=== PATIENT | male | born 1950 | race Caucasian/White ===

== ENCOUNTER 2016-12-25 08:59 | Inpatient (IN) | payer BC, OTHER ==
[2016-12-25] MEDS ORDERED: Albuterol/Ipratropium 3.0-0.5 MG/3 ML Neb Soln NEB ONE ×2 (09:01→10:25)
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
[2016-12-25] MEDS ORDERED: HYDROmorphone 1 MG/ML Syringe IVPUSH ONE (09:15)
[2016-12-25] MEDS ORDERED: Ondansetron 4 MG/2 ML SDV IVPUSH ONE (09:15)
[2016-12-25] MEDS ORDERED: Sodium Chloride 0.9% 1,000 ML ONE ×2 (09:48→15:32)
[2016-12-25] MEDS: Sodium Chloride 0.9% 10 ML Syringe FLUSH PRN (09:52)
[2016-12-25] MEDS ORDERED: Albuterol/Ipratropium 3.0-0.5 MG/3 ML Neb Soln ONE (10:31)
[2016-12-25] MEDS ORDERED: Furosemide 40 MG/4 ML VIAL IVPUSH ONE (10:57)
[2016-12-25] MEDS ORDERED: Dextrose 5%-0.9% NaCl 1,000 ML IV SCH (12:00)
[2016-12-25] MEDS ORDERED: Lidocaine 2% Jelly 10 ML Urojet ONE (13:17)
[2016-12-25] MEDS ORDERED: Lidocaine 2% Jelly 10 ML Urojet MUCMEM ONE (13:23)
[2016-12-25] MEDS ORDERED: Ibuprofen 600 MG Tab PO ONE (13:35)
[2016-12-25] MEDS ORDERED: Levofloxacin/Dextrose 5%-Water 750 MG in Premix Bag 1 BAG IV ONE (14:03)
[2016-12-25] MEDS ORDERED: Acetaminophen 325 MG Tab PO ONE (15:17)
[2016-12-25] MEDS ORDERED: Sodium Chloride 0.9% 1,000 ML IV SCH (15:30)
--- NOTE | 2016-12-25 15:44 | CR ---
Chest: Portable view of the chest was obtained. Comparison: Previous chest x-ray performed earlier on the same day. Heart size and mediastinum are stable. Bony structures are unchanged. Slight atelectasis within the right lung base is seen. Lungs otherwise are clear. Impression: 1. Mild right basilar atelectasis. Nothing acute is appreciated. Diagnostic code #2
--- NOTE | 2016-12-25 15:45 | CR ---
Chest: Frontal view of the chest was obtained. Comparison: No previous study. Heart size is normal. Tortuous thoracic aorta is seen. Linear density is seen within the right lung base most likely representing atelectasis. Lungs otherwise are clear. Several old healed left-sided rib fractures are noted. Impression: 1. Incidental findings as noted above. Nothing acute is appreciated. Diagnostic code #2
[2016-12-25] MEDS: Sodium Chloride 0.9% 1,000 ML IV SCH ×3 (16:58→21:11)
[2016-12-25] MEDS ORDERED: Albuterol/Ipratropium 3.0-0.5 MG/3 ML Neb Soln NEB PRN (17:55)
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
[2016-12-25] MEDS: Tamsulosin 0.4 MG Cap.ER PO SCH (18:27)
[2016-12-25] MEDS ORDERED: Acetaminophen 325 MG Tab PO PRN (22:52)
[2016-12-26] MEDS ORDERED: Albuterol 0.5% 2.5 MG/0.5 ML Neb Soln NEB PRN (00:36)
[2016-12-26] MEDS: methylPREDNISolone Sodium Succinate 125 MG/2 ML SDV IVPUSH SCH ×4 (00:57→20:32)
[2016-12-26] MEDS ORDERED: Piperacillin/Tazobactam 4.5 GM in Sodium Chloride 0.9% 100 ML IV SCH (01:00)
[2016-12-26] MEDS: Sodium Chloride 0.9% 1,000 ML IV SCH ×4 (01:29→15:27)
[2016-12-26] MEDS: Levalbuterol HCl 1.25 MG/3 ML Neb NEB SCH ×4 (02:10→20:41)
[2016-12-26] MEDS ORDERED: Furosemide 20 MG/2 ML VIAL IVPUSH ONE (05:00)
--- NOTE | 2016-12-26 07:31 | CR ---
Chest: Portable view of the chest was obtained. Comparison: Previous chest x-ray of 12/25/16. Heart size and mediastinum are within normal limits. Slight atelectasis remains within both lung bases. No acute infiltrates are seen. Old healed left mid rib fracture. Impression: 1. Mild atelectasis within both lung bases. Other incidental findings. 2. Nothing acute is otherwise seen. Diagnostic code #2 I agree with preliminary report issued by [facility] ([facility] preliminary report dictated on 12/26/16, 2:29 AM Central Time)
[2016-12-26] MEDS ORDERED: Furosemide 40 MG/4 ML VIAL IVPUSH ONE (08:00)
[2016-12-26] MEDS: Sodium Chloride 0.9% 10 ML Syringe FLUSH PRN (09:09)
[2016-12-26] MEDS: Piperacillin/Tazobactam 4.5 GM in Sodium Chloride 0.9% 100 ML IV SCH ×2 (09:11→18:03)
[2016-12-26] MEDS: Multivitamins with Minerals/Folic Acid/Lutein/Zeaxanth Tab PO SCH (09:14)
[2016-12-26] MEDS: Tamsulosin 0.4 MG Cap.ER PO SCH ×2 (09:14→19:32)
[2016-12-26] MEDS ORDERED: FLU Vacc TS 2017-18 (65yr UP)/PF 180 MCG/0.5 ML Syringe IM ONE (10:00)
[2016-12-26] MEDS ORDERED: Magnesium Sulfate/Water 2 GM in Premix Bag 1 BAG IV ONE (10:30)
[2016-12-26] MEDS: Enoxaparin 40 MG/0.4 ML Syringe SUBCUT SCH (11:30)
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
[2016-12-26] MEDS ORDERED: Levofloxacin/Dextrose 5%-Water 750 MG in Premix Bag 1 BAG IV SCH (13:00)
[2016-12-26] MEDS ORDERED: hydrALAZINE 20 MG/ML SDV IVPUSH PRN ×2 (14:22→16:23)
[2016-12-26] MEDS ORDERED: Ondansetron 4 MG/2 ML SDV IVPUSH STA (16:05)
[2016-12-26] MEDS ORDERED: Morphine 2 MG/ML Syringe IVPUSH ONE (16:06)
[2016-12-26] MEDS ORDERED: Morphine 2 MG/ML Syringe IVPUSH PRN (16:17)
[2016-12-26] MEDS ORDERED: LORazepam 2 MG/ML MDV IVPUSH PRN ×2 (16:21→17:09)
[2016-12-26] MEDS ORDERED: Ondansetron 4 MG/2 ML SDV IVPUSH PRN (16:23)
[2016-12-26] MEDS: Metoprolol Tartrate 25 MG Tab PO SCH ×2 (16:40→20:31)
[2016-12-26] MEDS ORDERED: Sodium Chloride 0.45% 1,000 ML IV SCH (17:45)
[2016-12-26] MEDS: Metoprolol Tartrate 5 MG/5 ML SDV IVPUSH PRN (17:58)
[2016-12-26] MEDS ORDERED: Sodium Chloride 0.9% 10 ML Syringe FLUSH PRN (18:05)
[2016-12-26] MEDS ORDERED: Iopamidol 612 MG/ML 100 ML Bottle IVPUSH ONE (18:05)
--- NOTE | 2016-12-26 19:12 | CT ---
CT chest (without and with contrast) Technique: Multiple axial sections were obtained through the chest without and with intravenous contrast. Comparison: Previous chest x-ray performed earlier on the same day. Findings: Mediastinum and hilar regions show no adenopathy or mass. Slight atherosclerotic calcification is noted within the aorta without aneurysmal dilatation. No pericardial thickening is seen. Small hiatal hernia is seen. Low-density lesions are seen within the liver with larger lesions having Hounsfield unit measurements of cysts and smaller lesions most likely of similar etiology. Cyst noted within both kidneys as well as nonobstructing calculi being seen within both kidneys. Lung window setting shows increased density within both lung bases having the appearance of atelectasis. Lungs otherwise are clear. No pleural effusions are seen. Bone window settings shows minimal degenerative spurring within the spine. Impression: 1. Mild atelectasis within both lung bases. 2. Findings within the abdomen which are felt to be incidental. 3. No additional abnormality is identified on CT study of the chest. Diagnostic code #2
[2016-12-27] MEDS: Codeine/Promethazine 10-6.25 MG/5 ML Syrup 5 ML UD Cup PO PRN ×2 (00:14→06:18)
[2016-12-27] MEDS: Piperacillin/Tazobactam 4.5 GM in Sodium Chloride 0.9% 100 ML IV SCH ×2 (00:14→08:46)
[2016-12-27] MEDS: Levalbuterol HCl 1.25 MG/3 ML Neb NEB SCH ×2 (03:18→09:11)
[2016-12-27] MEDS: methylPREDNISolone Sodium Succinate 125 MG/2 ML SDV IVPUSH SCH ×2 (03:21→08:46)
[2016-12-27] MEDS: Metoprolol Tartrate 5 MG/5 ML SDV IVPUSH PRN (06:18)
[2016-12-27] MEDS: Metoprolol Tartrate 25 MG Tab PO SCH (08:47)
[2016-12-27] MEDS: Enoxaparin 40 MG/0.4 ML Syringe SUBCUT SCH (08:47)
[2016-12-27] MEDS: Multivitamins with Minerals/Folic Acid/Lutein/Zeaxanth Tab PO SCH (08:47)
[2016-12-27] MEDS: Tamsulosin 0.4 MG Cap.ER PO SCH (08:47)
--- NOTE | 2016-12-27 10:24 | CR ---
Chest: Two views of the chest were obtained. Comparison: Prior chest CT of 12/26/16 and chest x-ray of 12/26/16. Changing areas of atelectasis are seen within both lung bases. Lung markings are minimally increased which appear stable. Heart size is normal. Slight tortuosity of the aorta is stable. Bony structures are unchanged. Impression: 1. Slight changing appearance of atelectasis within both lung bases. 2. No other interval change is appreciated. Diagnostic code #2
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
[2016-12-27] MEDS ORDERED: Sodium Chloride 0.45% 1,000 ML IV SCH (23:00)
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
== END 2016-12-27 12:56 | disposition home or self-care (01) | DRG 918 ==
LOC: JD.ED 08:59 → JD.ICU 15:14 → UNDOADMIN 15:14 → JD.ICU 15:33
PROVIDERS: ADMIT Hospitalist; ATTEND Hospitalist
DX: T59.891A Toxic effect of other specified gases, fumes and vapors, accidental (unintentional), initial encounter (principal); R50.9 Fever, unspecified; R09.02 Hypoxemia; T20.19XA Burn of first degree of multiple sites of head, face, and neck, initial encounter; X08.8XXA Exposure to other specified smoke, fire and flames, initial encounter; R00.0 Tachycardia, unspecified; N40.1 Benign prostatic hyperplasia with lower urinary tract symptoms; R33.8 Other retention of urine; I10 Essential (primary) hypertension; Z79.899 Other long term (current) drug therapy
CPT/HCPCS: 36415; 51702; 51798; 71010; 71010-26; 71020; 71020-26; 71270; 71270-26; 80048; 80053; 80061; 81001; 82553; 82803; 83605; 83735; 83880; 84443; 84484; 85025; 86140; 86738; 87040; 87070; 87086; 87205; 87486; 87581; 87633; 87798; 87899; 92610-GN; 93005; 93010; 94640; 96361; 96365; 96375; 97116-GP; 97162-GP; 97165-GO; 97530-GO; 99285; 99285-25; A9270-GY; J0360; J1170; J1650; J1940; J1956; J2270; J2405; J2543; J2930; J3475; J3490; J7030; J7040; J7042; J7050; Q9967

== ENCOUNTER 2016-12-25 15:33 | Inpatient (IN) | payer OTHER ==
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
[2016-12-27] MEDS ORDERED: Sodium Chloride 0.9% 10 ML Syringe FLUSH PRN (20:50)
[2016-12-27] MEDS ORDERED: Temazepam 7.5 MG Cap PO PRN (20:56)
[2016-12-27] MEDS ORDERED: Albuterol 0.083% 2.5 MG/3 ML Neb Soln NEB PRN (21:03)
[2016-12-27] MEDS ORDERED: Ondansetron 4 MG Tab.DIS PO PRN (21:04)
[2016-12-27] MEDS ORDERED: Acetaminophen 325 MG Tab PO PRN (21:05)
[2016-12-27] MEDS: Ascorbic Acid 500 MG Tab PO SCH (22:46)
[2016-12-27] MEDS: Metoprolol Tartrate 25 MG Tab PO SCH (22:47)
[2016-12-27] MEDS: Tamsulosin 0.4 MG Cap.ER PO SCH (22:47)
[2016-12-27] MEDS: Terazosin 1 MG Cap PO SCH (22:54)
[2016-12-27] MEDS: methylPREDNISolone Sodium Succinate 40 MG/1 ML SDV IVPUSH SCH (23:09)
[2016-12-28] MEDS: Ofloxacin 0.3% Ophth Soln 5 ML Bottle EYEBOTH SCH ×4 (00:20→20:52)
[2016-12-28] MEDS: Codeine/Promethazine 10-6.25 MG/5 ML Syrup 5 ML UD Cup PO PRN ×2 (01:19→20:48)
[2016-12-28] MEDS: methylPREDNISolone Sodium Succinate 40 MG/1 ML SDV IVPUSH SCH ×4 (04:09→20:55)
[2016-12-28] MEDS: Levalbuterol HCl 1.25 MG/3 ML Neb NEB SCH ×4 (06:27→21:23)
[2016-12-28] MEDS: Enoxaparin 40 MG/0.4 ML Syringe SUBCUT SCH (08:09)
[2016-12-28] MEDS: Metoprolol Tartrate 25 MG Tab PO SCH ×2 (08:10→20:50)
[2016-12-28] MEDS: Tamsulosin 0.4 MG Cap.ER PO SCH ×2 (08:10→18:06)
[2016-12-28] MEDS: Ascorbic Acid 500 MG Tab PO SCH ×2 (08:10→20:50)
[2016-12-28] MEDS: Terazosin 1 MG Cap PO SCH ×2 (08:10→20:50)
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
[2016-12-28] MEDS ORDERED: Tamsulosin 0.4 MG Cap.ER PO SCH (18:00)
[2016-12-29] MEDS: methylPREDNISolone Sodium Succinate 40 MG/1 ML SDV IVPUSH SCH ×3 (03:47→20:20)
[2016-12-29] MEDS: Levalbuterol HCl 1.25 MG/3 ML Neb NEB SCH ×4 (06:32→20:38)
[2016-12-29] MEDS: Metoprolol Tartrate 25 MG Tab PO SCH ×2 (08:43→20:20)
[2016-12-29] MEDS: Multivitamins,Therapeutic Tab PO SCH (08:43)
[2016-12-29] MEDS: Terazosin 1 MG Cap PO SCH ×2 (08:43→20:23)
[2016-12-29] MEDS: Lisinopril 20 MG Tab PO SCH (08:43)
[2016-12-29] MEDS: Tamsulosin 0.4 MG Cap.ER PO SCH ×2 (08:44→17:02)
[2016-12-29] MEDS: Enoxaparin 40 MG/0.4 ML Syringe SUBCUT SCH (08:44)
[2016-12-29] MEDS: Ascorbic Acid 500 MG Tab PO SCH ×2 (08:44→20:20)
[2016-12-29] MEDS: Ofloxacin 0.3% Ophth Soln 5 ML Bottle EYEBOTH SCH ×2 (08:45→20:23)
[2016-12-29] MEDS: Diphenhydramine/Lidocaine/MagAl/Simethicone 119 ML Bottle PO PRN ×2 (10:59→16:26)
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
[2016-12-29] MEDS ORDERED: methylPREDNISolone Sodium Succinate 40 MG/1 ML SDV IVPUSH SCH (12:00)
[2016-12-29] MEDS: Codeine/Promethazine 10-6.25 MG/5 ML Syrup 5 ML UD Cup PO PRN (12:19)
[2016-12-29] MEDS ORDERED: Mineral Oil/White Petrolatum Crm 113 GM Jar TOP PRN (12:30)
[2016-12-29] MEDS ORDERED: Terazosin 1 MG Cap PO ONE (16:31)
[2016-12-30] MEDS: Levalbuterol HCl 1.25 MG/3 ML Neb NEB SCH (06:22)
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
[2016-12-30] MEDS: Multivitamins,Therapeutic Tab PO SCH (08:16)
[2016-12-30] MEDS: Tamsulosin 0.4 MG Cap.ER PO SCH (08:17)
[2016-12-30] MEDS: Lisinopril 20 MG Tab PO SCH (08:17)
[2016-12-30] MEDS: Metoprolol Tartrate 25 MG Tab PO SCH (08:17)
[2016-12-30] MEDS: Ascorbic Acid 500 MG Tab PO SCH (08:17)
[2016-12-30] MEDS: methylPREDNISolone Sodium Succinate 40 MG/1 ML SDV IVPUSH SCH (08:18)
[2016-12-30] MEDS: Enoxaparin 40 MG/0.4 ML Syringe SUBCUT SCH (08:18)
[2016-12-30] MEDS: Ofloxacin 0.3% Ophth Soln 5 ML Bottle EYEBOTH SCH (08:18)
[2016-12-30] MEDS: Terazosin 1 MG Cap PO SCH (08:19)
== END 2016-12-30 09:14 | disposition home or self-care (01) | DRG 918 ==
LOC: JD.MS 15:33 → UNDOADMIN 12-27 19:40 → JD.MS 12-27 20:08 → UNDOADMIN 12-27 20:08 → UNDODISIN 12-30 09:14
PROVIDERS: ADMIT Internal Medicine Cardiovascular Disease; ATTEND Internal Medicine Cardiovascular Disease
DX: T59.891A Toxic effect of other specified gases, fumes and vapors, accidental (unintentional), initial encounter (principal); H44.002 Unspecified purulent endophthalmitis, left eye; T20.59XA Corrosion of first degree of multiple sites of head, face, and neck, initial encounter; R50.9 Fever, unspecified; N40.1 Benign prostatic hyperplasia with lower urinary tract symptoms; R33.8 Other retention of urine; R09.02 Hypoxemia; I10 Essential (primary) hypertension; H53.9 Unspecified visual disturbance; R00.0 Tachycardia, unspecified; Z79.899 Other long term (current) drug therapy; T20.19XA Burn of first degree of multiple sites of head, face, and neck, initial encounter; X08.8XXA Exposure to other specified smoke, fire and flames, initial encounter
CPT/HCPCS: 36415; 51702; 51798; 71010; 71020; 71270; 80048; 80053; 80061; 81001; 82553; 82803; 83605; 83735; 83880; 84443; 84484; 85025; 86140; 86738; 87040; 87070; 87086; 87205; 87486; 87581; 87633; 87798; 87899; 92526-GN; 92610-GN; 93005; 94640; 94760; 94761; 94762; 96361; 96365; 96375; 97116-GP; 97162-GP; 97165-GO; 97530-GO; 99285-25; A9270-GY; J0360; J1170; J1650; J1940; J1956; J2270; J2405; J2543; J2920; J2930; J3475; J3490; J7030; J7040; J7042; J7050; Q9967

== ENCOUNTER → 2019-03-02 | Day surgery (SDC) | payer BC, OTHER ==
[2019-03-02] MEDS: Polymyxin B/Trimethoprim 10 ML Bottle EYELF SCH ×4 (07:13→08:37)
[2019-03-02] MEDS: Brimonidine 0.2% Ophth Soln 5 ML Bottle EYELF SCH ×4 (07:18→08:37)
[2019-03-02] MEDS: Phenylephrine 2.5% Ophth Soln 2 ML Bot EYELF SCH ×6 (07:23→08:26)
--- NOTE | 2019-03-02 07:23 | PCM.PREANE ---
Preanesthetic Assessment - Anesthesia/Transfusion/Family Hx Anesthesia History: Prior Anesthesia Without Reaction Family History of Anesthesia Reaction: No Transfusion History: No Prior Transfusion(s) - Review of Systems General: No Symptoms Pulmonary: No Symptoms Cardiovascular: Other (HTN) Gastrointestinal: No Symptoms Neurological: No Symptoms - Physical Assessment NPO Status Date: 03/01/19 NPO Status Time: 22:00 Height: 1.88 m Weight: 113.398 kg ASA Class: 2 Mental Status: Alert & Oriented x3 Airway Class: Mallampati = 2 Dentition: Reports: Normal Dentition Thyro-Mental Finger Breadths: 3 Mouth Opening Finger Breadths: 3 ROM/Head Extension: Full Lungs: Clear to Auscultation, Normal Respiratory Effort Cardiovascular: Regular Rate, Regular Rhythm - Allergies Allergies/Adverse Reactions: Allergies Allergy/AdvReac Type Severity Reaction Status Date / Time No Known Allergies Allergy Verified 03/01/19 16:19 - Blood Blood Available: No Product(s) Available: None - Anesthesia Plan Pre-Op Medication Ordered: None - Acknowledgements Anesthesia Type Planned: MAC Pt an Appropriate Candidate for the Planned Anesthesia: Yes Alternatives and Risks of Anesthesia Discussed w Pt/Guardian: Yes Pt/Guardian Understands and Agrees with Anesthesia Plan: Yes PreAnesthesia Questionnaire Cardiovascular History: Reports: Hypertension Genitourinary History: Reports: BPH - Past Surgical History GI Surgical History: Reports: Appendectomy Musculoskeletal Surgical History: Reports: Knee Replacement - HOME MEDS Home Medications: Home Meds Lisinopril 20 mg PO DAILY 12/25/16 [History] Tamsulosin [Flomax] 0.4 mg PO BIDPC #60 cap.er 12/27/16 [Rx] Carboxymethylcellulose Sodium [Artificial Tears] 1 drop EYEBOTH BID PRN [History] Hydrochlorothiazide [Microzide] 12.5 mg PO DAILY 03/01/19 [History] - CURRENT (IN HOUSE) MEDS Current Meds: Current Medications Brimonidine Tartrate (Alphagan 0.2% Oph Soln) 0 ml EYELF ASDIRECTED RICKY Stop: 03/02/19 18:00 Cefuroxime Sodium (Zinacef) 0 mg EYELF ASDIRECTED RICKY Stop: 03/02/19 18:00 Lidocaine HCl (Xylocaine-Mpf 1%) 0 ml INJECT ASDIRECTED RICKY Stop: 03/02/19 18:00 Phenylephrine HCl (Neftali-Synephrine 2.5% Ophth Soln) 0 ml EYELF ASDIRECTED RICKY Stop: 03/02/19 18:00 Pilocarpine HCl (Pilocar 4% Ophth Soln) 0 ml EYELF ASDIRECTED RICKY Stop: 03/02/19 18:00 Polymyxin/Trimethoprim Sulfate (Polytrim Ophth Soln) 0 ml EYELF ASDIRECTED RICKY Stop: 03/02/19 18:00 Tetracaine HCl (Tetracaine 0.5% Steri-Unit Lindsay) 0 ml EYELF ASDIRECTED RICKY Stop: 03/02/19 18:00 Tropicamide (Mydriacyl 1% Ophth Soln) 0 ml EYELF ASDIRECTED RICKY Stop: 03/02/19 18:00
[2019-03-02] MEDS: Tropicamide 1% Ophth Soln 15 ML Bottle EYELF SCH ×4 (07:28→08:04)
[2019-03-02] MEDS: Tetracaine HCl/PF 0.5% 4 ML Bottle EYELF SCH ×3 (08:11→08:26)
[2019-03-02] MEDS: Lidocaine 1% PF 2 ML SDV INJECT SCH ×2 (08:23→08:26)
[2019-03-02] MEDS: Cefuroxime 10 MG/ML SYRINGE EYELF SCH ×2 (08:27→08:36)
[2019-03-02] MEDS: Pilocarpine 4% Ophth Soln 15 ML Bot EYELF SCH ×2 (08:28→08:37)
--- NOTE | 2019-03-02 08:38 | PCM48HPAN ---
Post Anesthesia Note - EVALUATION WITHIN 48HRS OF ANESTHETIC Vital Signs in Normal Range: Yes Patient Participated in Evaluation: Yes Respiratory Function Stable: Yes Airway Patent: Yes Cardiovascular Function Stable: Yes Hydration Status Stable: Yes Pain Control Satisfactory: Yes Nausea and Vomiting Control Satisfactory: Yes Mental Status Recovered: Yes Vital Signs: Last Vital Signs Temp 36.8 C 03/02/19 07:05 Pulse 83 03/02/19 07:05 Resp 16 03/02/19 07:05 BP 147/66 H 03/02/19 07:05 Pulse Ox 96 03/02/19 07:05
== END ==
LOC: JD.SDS 06:58
PROVIDERS: ATTEND Ophthalmology
DX: H25.813 Combined forms of age-related cataract, bilateral (principal); H40.1111 Primary open-angle glaucoma, right eye, mild stage; H40.052 Ocular hypertension, left eye; H16.103 Unspecified superficial keratitis, bilateral; H16.223 Keratoconjunctivitis sicca, not specified as Sjogren's, bilateral; H21.81 Floppy iris syndrome; I10 Essential (primary) hypertension; Z87.891 Personal history of nicotine dependence
CPT/HCPCS: 66984; C1780; J0697; J2001

== ENCOUNTER 2020-05-06 15:16 | Emergency (ER) | payer MEDICARE, BC ==
--- NOTE | 2020-05-06 16:12 | EDM.PDOC ---
ED HPI GENERAL MEDICAL PROBLEM - General Chief Complaint: ENT Problem Stated Complaint: NAIL STUCK IN NOSE Time Seen by Provider: 05/06/20 15:39 Source of Information: Reports: Patient, RN Notes Reviewed History Limitations: Reports: No Limitations - History of Present Illness INITIAL COMMENTS - FREE TEXT/NARRATIVE: Is a 70-year-old male who presents to the ER for a foreign body in his nose. Patient notes he was working with some metal at home, on unguarded table saw, when a nail was dislodged, and struck his face. He states the stroke on the left side of his nose, and feels a foreign body stuck on the outer surface of his nose, he was not able to get this out at home so he comes to the ER for removal. He denies any eye injury, or any bloody nose, or any other facial injuries. He has had not had any fevers or chills, cough or shortness of breath, nausea/vomiting/diarrhea. Patient is not on any blood thinners. Patient states that he is up-to-date on his tetanus vaccine. - Related Data Allergies Allergy/AdvReac Type Severity Reaction Status Date / Time No Known Allergies Allergy Verified 03/01/19 16:19 Home Meds: Home Meds Lisinopril 20 mg PO DAILY 12/25/16 [History] hydroCHLOROthiazide [Microzide] 12.5 mg PO DAILY 03/01/19 [History] Past Medical History Cardiovascular History: Reports: Hypertension Genitourinary History: Reports: BPH - Past Surgical History HEENT Surgical History: Reports: None Cardiovascular Surgical History: Reports: None GI Surgical History: Reports: Appendectomy Male Surgical History: Reports: None Musculoskeletal Surgical History: Reports: Knee Replacement Dermatological Surgical History: Reports: None Social & Family History - Family History Family Medical History: No Pertinent Family History - Tobacco Use Tobacco Use Status *Q: Never Tobacco User Second Hand Smoke Exposure: No - Caffeine Use Caffeine Use: Reports: Coffee - Recreational Drug Use Recreational Drug Use: No - Living Situation & Occupation Living situation: Reports: Occupation: Employed ED ROS ENT - Review of Systems Review Of Systems: Comprehensive ROS is negative, except as noted in HPI. ED EXAM, ENT - Physical Exam Exam: See Below Exam Limited By: No Limitations General Appearance: Alert, WD/WN, No Apparent Distress Nose: Normal Mucousa, Other (metallic foreign body noted to the outer left nasal bridge. bleeding is under control) Mouth/Throat: Normal Inspection Head: Normocephalic, Other (nasal laceration with retained foreign body) Neck: Normal Inspection, Supple, Non-Tender, Full Range of Motion Respiratory/Chest: No Respiratory Distress, Lungs Clear, Normal Breath Sounds, No Accessory Muscle Use, Chest Non-Tender Cardiovascular: Normal Peripheral Pulses, Regular Rate, Rhythm, No Edema Extremities: Normal Inspection, Normal Capillary Refill Neurological: Alert, Oriented, Normal Cognition, No Motor/Sensory Deficits Psychiatric: Normal Affect, Normal Mood Skin: Warm, Dry, Normal Color, No Rash, Wound/Incision (To the left nasal bridge, there is a metallic foreign body noted at the end of the wound tract.) ED ENT PROCEDURES - Foreign Body Removal Indication:: foreign body (metal nail) stuck in skin of nose Consent Obtained: Patient Performing Doctor:: Angela Santiago V Foreign Body Other Location Comment:: left nasal bridge, superficial skin Anesthesia Type: None Complications: No Comments: Patient presents for his suspected retained metallic foreign body in the superficial skin of his left nasal bridge. The area was lanced with an 18-gauge needle, and I did extract about 1/2 cm piece of metal with tweezers with little to no difficulty, patient tolerated procedure well, there was little to no bleeding with this small procedure. Course - Vital Signs Last Recorded V/S: Last Vital Signs Temp 98.7 F 05/06/20 15:35 Pulse 100 05/06/20 15:35 Resp 16 05/06/20 15:35 BP 173/112 H 05/06/20 15:35 Pulse Ox 96 05/06/20 15:35 Departure - Departure Time of Disposition: 16:12 Disposition: Home, Self-Care 01 Condition: Good Clinical Impression: Foreign body (FB) in soft tissue - Discharge Information *PRESCRIPTION DRUG MONITORING PROGRAM REVIEWED*: No *COPY OF PRESCRIPTION DRUG MONITORING REPORT IN PATIENT TERRY: No Referrals: PCP,None [Primary Care Provider] - Additional Instructions: You were seen in the ER today for your piece of nail that was stuck within the skin of your left nose. This was extracted with little difficulty, there was a small amount of bleeding, but this should get even less as the day goes on. If you should get some bleeding while you are at home, please apply pressure or an ice pack to try to stop the bleeding. Please watch out for signs of infection, redness/swelling/drainage at the wound site. You may cleanse the area with warm soapy water, and pat it dry. Please return to the ER at any time if your symptoms change or worsen. Sepsis Event Note (ED) - Evaluation Sepsis Screening Result: No Definite Risk - Focused Exam Vital Signs: Vital Signs Temp Pulse Resp BP Pulse Ox 05/06/20 15:35 98.7 F 100 16 173/112 H 96
== END 2020-05-06 16:25 | disposition home or self-care (01) ==
LOC: JD.ED 15:16
DX: T17.1XXA Foreign body in nostril, initial encounter (principal); I10 Essential (primary) hypertension; Z79.899 Other long term (current) drug therapy
CPT/HCPCS: 10120; 30300; 99282; 99282-25

== ENCOUNTER → 2021-12-06 | Day surgery (SDC) | payer MEDICARE, BC ==
[2021-12-06] MEDS: Brimonidine 0.2% Ophth Soln 5 ML Bottle EYERT SCH ×2 (15:25→16:32)
[2021-12-06] MEDS: Phenylephrine 2.5% Ophth Soln 2 ML Bot EYERT SCH ×3 (15:30→15:50)
[2021-12-06] MEDS: Tropicamide 1% Ophth Soln 15 ML Bottle EYERT SCH ×3 (15:35→15:55)
== END ==
LOC: JD.SDS 14:23
PROVIDERS: ATTEND Ophthalmology
DX: E11.36 Type 2 diabetes mellitus with diabetic cataract (principal); H26.492 Other secondary cataract, left eye; I10 Essential (primary) hypertension; Z98.890 Other specified postprocedural states

== ENCOUNTER 2023-03-06 16:35 | Emergency (ER) | payer MEDICARE, BC ==
[2023-03-06] MEDS ORDERED: Bupivacaine 0.5% 50 ML MDV INFILT ONE (17:21)
[2023-03-06] MEDS ORDERED: Bupivacaine 0.5% 10 ML SDV INJECT ONE (17:24)
[2023-03-06] MEDS ORDERED: Amoxicillin/Clavulanate K 875-125 MG Tab PO ONE (17:41)
[2023-03-06] MEDS ORDERED: Diphtheria,Pertussis(Acell),Tetanus Vaccine 0.5 ML Syringe IM ONE (18:52)
== END 2023-03-06 19:13 | disposition home or self-care (01) ==
LOC: JD.ED 16:35
DX: S62.631B Displaced fracture of distal phalanx of left index finger, initial encounter for open fracture (principal); I10 Essential (primary) hypertension; Z23 Encounter for immunization; Z79.899 Other long term (current) drug therapy; W27.0XXA Contact with workbench tool, initial encounter
CPT/HCPCS: 12001; 73130; 90471; 90715; 99283; A9270; J0665